=== PATIENT | male | born 1950 | race Caucasian/White ===

== ENCOUNTER → 2016-09-09 | Outpatient (CLI) | payer MEDICARE ==
[2014-11-03 19:00] VITALS: BP 110/69
[~2016-09-09] MED LIST: AMLO5TAB2 PO; ASPI325T8 PO; AZIT250T PO; CITA20TA5 PO; HYDR25TA9 PO; PANT40TA3 PO; PRED-220 PO; PROAIR HFA8.5 GM IH; PROM118S2 PO
--- NOTE | 2016-09-09 11:26 | RAD ---
Indication chronic cough for a year. Axial images through the chest were obtained. No IV contrast was administered. Note is made of a previous examination 06/26/2015. Imaging through the upper abdomen is unremarkable. There is a minute right renal calculus. The thoracic aorta is grossly unremarkable. There is no significant mediastinal or hilar adenopathy. Known coronary artery calcification is reproduced. There are no significant interstitial changes. A subtle opacity in the right upper lobe probably reflecting scar is noted appearing similar to the previous exam. There are no underlying emphysematous changes. An acute finding in the chest or significant change compared to the previous exam is not seen. IMPRESSION: No acute or focal process. No significant change PQRS Compliance Statement: One or more of the following individualized dose reduction techniques were utilized for this examination: 1. Automated exposure control 2. Adjustment of the mA and/or kV according to patient size 3. Use of iterative reconstruction technique
== END | disposition home or self-care (01) ==
LOC: CT 15:37
PROVIDERS: ATTEND Internal Medicine Pulmonary Disease
DX: R05 Cough (principal)
CPT/HCPCS: 71250

== ENCOUNTER 2017-01-24 20:10 | Emergency (ER) | payer MEDICARE ==
[~2017-01-24] VITALS: Ht 177.8 cm; Wt 91.6 kg
[2017-01-24 20:20] VITALS: BP 156/97
[2017-01-24] MEDS ORDERED: ACET-704 PO (21:27)
[2017-01-24] MEDS ORDERED: AMOX500C PO (21:27)
--- NOTE | 2017-01-24 21:27 | PHYS DOC ---
Past Medical History Past Medical History: GERD, Hypertension Past Surgical History: Other Additional Past Surgical Histo: c-spine, left shoulder, Alcohol Use: None Drug Use: None Adult General Chief Complaint Chief Complaint: DENTAL PROBLEM HPI HPI Patient is a 66 year old male presents to the emergency department stating that he's been having dental pain for the last 2 days. He states his been taking ibuprofen 3 tablets more frequently than he probably should. Patient states that he is completely out of ibuprofen at this time. Patient denies having a dentist in which he can follow-up with. He states that he has pain along the bottom and upper teeth. He also states he has pain into his right ear. Denies any fever but does state he has had chills. Review of Systems Review of Systems Constitutional: Denies fever or chills [] Eyes: Denies change in visual acuity, redness, or eye pain [] HENT: Denies nasal congestion or sore throat. dental pain, right ear pain Respiratory: Denies cough or shortness of breath [] Cardiovascular: No additional information not addressed in HPI [] GI: Denies abdominal pain, nausea, vomiting, bloody stools or diarrhea [] : Denies dysuria or hematuria [] Musculoskeletal: Denies back pain or joint pain [] Integument: Denies rash or skin lesions [] Neurologic: Denies headache, focal weakness or sensory changes [] Endocrine: Denies polyuria or polydipsia [] All other systems were reviewed and found to be within normal limits, except as documented in this note. Allergies Allergies Allergies Coded Allergies Type Severity Reaction Last Updated Verified No Known Drug Allergies 04/18/13 No Physical Exam Physical Exam Constitutional: Well developed, well nourished, no acute distress, non-toxic appearance. [] HENT: Normocephalic, atraumatic, bilateral external ears normal, oropharynx moist, no oral exudates, nose normal. Right tympanic membrane appears to be red left amending membrane appears to be normal. Patient's teeth appears to be decayed and mainly gone. Patient does have tenderness noted along the frontal part of the gumline. Patient does have inflammation. No discharge noted. Eyes: PERRLA, EOMI, conjunctiva normal, no discharge. [] Neck: Normal range of motion, no tenderness, supple, no stridor. [] Cardiovascular:Heart rate regular rhythm, no murmur [] Lungs & Thorax: Bilateral breath sounds clear to auscultation [] Skin: Warm, dry, no erythema, no rash. [] Extremities: No tenderness, no cyanosis, no clubbing, ROM intact, no edema. [] Neurologic: Alert and oriented X 3, normal motor function, normal sensory function, no focal deficits noted. [] Psychologic: Affect normal, judgement normal, mood normal. [] Current Patient Data Vital Signs Vital Signs Date Time Temp Pulse Resp B/P (MAP) Pulse Ox O2 Delivery O2 Flow Rate FiO2 01/24/17 20:20 97.9 95 22 98 Room Air 97.9 EKG EKG [] Radiology/Procedures Radiology/Procedures [] Course & Med Decision Making Course & Med Decision Making Pertinent Labs and Imaging studies reviewed. (See chart for details) Patient will be provided with Tylenol 3 when she was instructed will cause drowsiness and may cause constipation. Patient also be placed on amoxicillin 500 mg 4 times a day for the next 10 days. He'll be provided with a dentist list with recommendations to follow up with a dentist within the week. Patient was provided with signs and symptoms return back to the emergency department. All questions and concerns of been answered at the patients bedside. [I've spoken with the patient and/or caregivers. I've explained the patient's condition, diagnosis and treatment plan based on information available to me at this time. I've answered the patient's and/or caregivers questions and addressed any concerns. The patient and/or caregivers have a good understanding the patient's diagnosis, condition and treatment plan as can be expected at this point. Vital signs have been stabilized. The patient's condition is stable for discharge from the emergency department. The patient will pursue further outpatient evaluation with her primary care provider or other designated consulting physician as outlined in the discharge instructions. Patient and/or caregivers are agreeable to this plan of care and follow-up instructions have been explained in detail. The patient and/or caregivers have received these instructions in written format and expressed understanding of these discharge instructions. The patient and her caregivers are aware that if any significant change in condition or worsening of symptoms should prompt him to immediately return to this of the closest emergency department. If an emergent department is not readily available I would encourage him to call 911.] Sadeon Disclaimer Dragon Disclaimer This electronic medical record was generated, in whole or in part, using a voice recognition dictation system. Departure Departure Impression: Primary Impression: Pain, dental Additional Impression: Right otitis media Disposition: 01 HOME, SELF-CARE Condition: STABLE Referrals: NOHELIA JONES MD (PCP) Patient Instructions: Dental Pain, [id number], Otitis Media, Adult, Easy-to- Read Additional Instructions: Activity as tolerated. Medications as prescribed. Tylenol No. 3 may cause drowsiness do not take any be alert and oriented. Tylenol No. 3 may also cause constipation and she drink plenty of fluids and high-fiber diet. Antibiotics as prescribed. Warm salt water mouth rinses 4 times a day. Continue to bras and a prescription teeth. Follow-up with a dentist within the week. Return back to the emergency department as needed for signs and symptoms that become worse. Scripts Amoxicillin (AMOXICILLIN) 500 Mg Capsule 1 CAP PO QID, #40 CAP Prov: JOYCE ADKINS APRN 01/24/17 Acetaminophen With Codeine (TYLENOL WITH CODEINE #3 TABLET) 1 Each Tablet 1 TAB PO PRN Q6HRS Y for PAIN, #15 TAB Prov: JOYCE ADKINS APRN 01/24/17 Problem Qualifiers Additional Impression: Right otitis media Otitis media type: unspecified Qualified Codes: H66.91 - Otitis media, unspecified, right ear JOYCE ADKINS SMELTER LINER Jan 24, 2017 21:27
[2017-01-24] MEDS ORDERED: ACETAMINOPHEN/CODEINE 300/30MG TABLET. PO ONE (21:30)
== END 2017-01-24 21:36 | disposition home or self-care (01) ==
LOC: ER 20:10
DX: K08.89 Other specified disorders of teeth and supporting structures (principal); H66.91 Otitis media, unspecified, right ear; K21.9 Gastro-esophageal reflux disease without esophagitis; I10 Essential (primary) hypertension
CPT/HCPCS: 99283

== ENCOUNTER → 2017-11-15 | Outpatient (CLI) | payer MEDICARE ==
[2017-07-02 11:00] VITALS: BP 129/77
[~2017-11-15] MED LIST changes: +ACET-704 PO; -AMLO5TAB2 PO; +AMLO5TAB7 PO; +AMOX500C PO; -CITA20TA5 PO; +CITA20TA6 PO; +CYCL10TA2 PO; +HYDR-971 PO; -PROM118S2 PO; +PROM118S5 PO
--- NOTE | 2017-11-15 10:55 | RAD ---
CT of the chest without contrast, 11/15/2017: HISTORY: Chronic cough Noncontrast scans were obtained as requested and compared to a study from 09/09/2016. The thoracic aorta is of normal caliber. Moderate scattered coronary artery calcifications are present. The heart is not enlarged. No mediastinal adenopathy is seen. The right hemidiaphragm is mildly elevated. There are minimal linear parenchymal scars in the lungs. There is mild thickening of the minor fissure on the right. There is a calcified granuloma medially in the right lung base. No pulmonary mass or significant consolidation is seen. There is no evidence of pleural fluid. There are couple of tiny bilateral intrarenal calcifications compatible with nonobstructing calculi. Moderate multilevel hypertrophic degenerative change is present in the spine. IMPRESSION: 1. Moderate coronary artery calcifications. 2. No acute chest abnormality is detected. 3. Tiny nonobstructing intrarenal calculi. PQRS Compliance Statement: One or more of the following individualized dose reduction techniques were utilized for this examination: 1. Automated exposure control 2. Adjustment of the mA and/or kV according to patient size 3. Use of iterative reconstruction technique Electronically signed by: Rony Flores MD (11/15/2017 10:52 AM) [facility]
== END | disposition home or self-care (01) ==
LOC: CT 10:49
PROVIDERS: ATTEND Internal Medicine Pulmonary Disease
DX: I25.10 Atherosclerotic heart disease of native coronary artery without angina pectoris (principal); N20.0 Calculus of kidney; I25.2 Old myocardial infarction; I10 Essential (primary) hypertension; E78.5 Hyperlipidemia, unspecified; E78.00 Pure hypercholesterolemia, unspecified; K21.9 Gastro-esophageal reflux disease without esophagitis; Z82.49 Family history of ischemic heart disease and other diseases of the circulatory system
CPT/HCPCS: 71250

== ENCOUNTER → 2018-01-01 | Outpatient (CLI) | payer MEDICARE ==
[2017-07-02 11:00] VITALS: BP 129/77
[~2018-01-01] MED LIST changes: +DOCU-109 PO; +HYDR-2758 PO; +HYDR12.53 PO; +METH750T2 PO
[2018-01-01 13:26] LABS: BASO % 1 % (0-3); EOS % 1 % (0-3); HEMATOCRIT 34.4 % (39.0-53.0); HEMOGLOBIN 12.2 g/dL (13.0-17.5); LYMPH # 0.8 x10^3/uL (1.0-4.8); LYMPH % 14 % (24-48); MEAN CORPUSCULAR HEMOGLOBIN 34 pg (25-35); MEAN CORPUSCULAR HGB CONC 35 g/dL (31-37); MEAN CORPUSCULAR VOLUME 95 fL (79-100); MONO # 0.5 x10^3/uL (0.0-1.1); MONO % 9 % (0-9); NEUT # 4.4 x10^3uL (1.8-7.7); NEUT % 77 % (31-73); PLATELET COUNT 120 x10^3/uL (140-400); RED BLOOD COUNT 3.64 x10^6/uL (4.30-5.70); RED CELL DISTRIBUTION WIDTH 15.2 % (11.5-14.5); WHITE BLOOD COUNT 5.7 x10^3/uL (4.0-11.0)
[2018-01-01 13:40] LABS: ALBUMIN 3.4 g/dL (3.4-5.0); ALBUMIN/GLOBULIN RATIO 0.8 (1.0-1.7); CALCIUM 8.8 mg/dL (8.5-10.1); CREATININE 1.2 mg/dL (0.7-1.3); GFR 60.6; POTASSIUM 3.3 mmol/L (3.5-5.1); TOTAL BILIRUBIN 1.1 mg/dL (0.2-1.0); TOTAL PROTEIN 7.7 g/dL (6.4-8.2)
== END | disposition home or self-care (01) ==
LOC: SURGPAT 12:23
PROVIDERS: ATTEND Neurological Surgery
DX: Z01.818 Encounter for other preprocedural examination (principal); M48.02 Spinal stenosis, cervical region; M54.12 Radiculopathy, cervical region
CPT/HCPCS: 36415; 80053; 85025; 87641

== ENCOUNTER → 2018-01-01 | Outpatient (CLI) | payer MEDICARE ==
[2017-07-02 11:00] VITALS: BP 129/77
[2018-01-01 17:01] LABS: CHOLESTEROL/HDL RATIO 2.8
== END | disposition home or self-care (01) ==
LOC: LAB 12:33
PROVIDERS: ATTEND Specialist
DX: I25.10 Atherosclerotic heart disease of native coronary artery without angina pectoris (principal)
CPT/HCPCS: 36415; 80061; 84443

== ENCOUNTER 2018-07-23 01:55 | Inpatient (IN) | payer MEDICARE ==
[~2018-07-23] VITALS: Ht 177.8 cm; Wt 86.6 kg
[~2018-07-23 01:55] MED LIST changes: +ALBU2.5V8 IH; +AMLO5TAB10 PO; -AMLO5TAB7 PO; +HYDR-2145 PO; -HYDR-2758 PO; +HYDR-2761 PO; +HYDR-3164 PO; -HYDR-971 PO; -HYDR12.53 PO; +HYDR12.575 PO; -HYDR25TA9 PO; -PROAIR HFA8.5 GM IH
[2018-07-23 02:35] LABS: BASO % 1 % (0-3); EOS # 0.1 x10^3/uL (0.0-0.7); EOS % 1 % (0-3); HEMATOCRIT 25.3 % (39.0-53.0); HEMOGLOBIN 8.6 g/dL (13.0-17.5); LYMPH # 0.8 x10^3/uL (1.0-4.8); LYMPH % 20 % (24-48); MEAN CORPUSCULAR HEMOGLOBIN 33 pg (25-35); MEAN CORPUSCULAR HGB CONC 34 g/dL (31-37); MEAN CORPUSCULAR VOLUME 97 fL (79-100); MONO # 0.2 x10^3/uL (0.0-1.1); MONO % 7 % (0-9); NEUT # 2.7 x10^3uL (1.8-7.7); NEUT % 71 % (31-73); PLATELET COUNT 90 x10^3/uL (140-400); RED CELL DISTRIBUTION WIDTH 16.8 % (11.5-14.5); WHITE BLOOD COUNT 3.7 x10^3/uL (4.0-11.0)
[2018-07-23 02:44] LABS: PROTHROMBIN TIME PATIENT 13.9 SEC (11.7-14.0)
[2018-07-23] MEDS ORDERED: KETOROLAC 15 MG/ML VIAL. IV ONE (02:45)
[2018-07-23] MEDS ORDERED: CYCLOBENZAPRINE 10 MG TABLET. PO ONE (02:45)
[2018-07-23] MEDS ORDERED: IV NORMAL SALINE 1000ML BAG 1,000 ML IV ONE (02:45)
[2018-07-23] MEDS ORDERED: ASPIRIN 325 MG TABLET PO ONE (02:45)
[2018-07-23] MEDS ORDERED: DEXAMETHASONE SOD PHOS 20 MG/5 ML VIAL. IV ONE (02:45)
[2018-07-23 03:02] LABS: ALBUMIN 3.4 g/dL (3.4-5.0); ALBUMIN/GLOBULIN RATIO 0.9 (1.0-1.7); CREATININE 1.3 mg/dL (0.7-1.3); GFR 55.1; MAGNESIUM 1.8 mg/dL (1.8-2.4); POTASSIUM 2.9 mmol/L (3.5-5.1); TOTAL BILIRUBIN 1.5 mg/dL (0.2-1.0); TOTAL PROTEIN 7.2 g/dL (6.4-8.2)
[2018-07-23] MEDS ORDERED: POTASSIUM CHLORIDE 20 MEQ TABLET.ER. PO ONE ×2 (03:15→08:30)
--- NOTE | 2018-07-23 03:29 | PHYS DOC ---
Past Medical History Past Medical History: CAD, GERD, Hypertension Past Surgical History: Angioplasty, Other Additional Past Surgical Histo: c-spine X2,left shoulder,ROTATOR CUFF,CARDIAC STENTS Smoking: Quit Greater Than 1 Year Alcohol Use: None Drug Use: Marijuana Adult General Chief Complaint Chief Complaint: BACK PAIN - NO INJURY HPI HPI Patient is a 68 year old [f__sex] who presents with [] Review of Systems Review of Systems Constitutional: Denies fever or chills [] Eyes: Denies change in visual acuity, redness, or eye pain [] HENT: Denies nasal congestion or sore throat [] Respiratory: Denies cough or shortness of breath [] Cardiovascular: No additional information not addressed in HPI [] GI: Denies abdominal pain, nausea, vomiting, bloody stools or diarrhea [] : Denies dysuria or hematuria [] Musculoskeletal: Denies back pain or joint pain [] Integument: Denies rash or skin lesions [] Neurologic: Denies headache, focal weakness or sensory changes [] Endocrine: Denies polyuria or polydipsia [] All other systems were reviewed and found to be within normal limits, except as documented in this note. Current Medications Current Medications Current Medications Medications (Trade) Dose Ordered Sig/Josephine Start Time Stop Time Status Last Admin Dose Admin Aspirin (Christine Aspirin) 325 mg 1X ONCE 07/23/18 02:45 07/23/18 02:46 DC 07/23/18 02:48 325 MG Cyclobenzaprine HCl (Flexeril) 10 mg 1X ONCE 07/23/18 02:45 07/23/18 02:46 DC 07/23/18 02:48 10 MG Dexamethasone Sodium Phosphate (Decadron) 10 mg 1X ONCE 07/23/18 02:45 07/23/18 02:46 DC 07/23/18 02:48 10 MG Ketorolac Tromethamine (Toradol 15mg Vial) 15 mg 1X ONCE 07/23/18 02:45 07/23/18 02:46 DC 07/23/18 02:48 15 MG Potassium Chloride (Klor-Con) 40 meq 1X ONCE 07/23/18 03:15 07/23/18 03:16 DC 07/23/18 03:41 40 MEQ Sodium Chloride 1,000 ml @ 1,000 mls/hr 1X ONCE 07/23/18 02:45 07/23/18 03:44 DC 07/23/18 02:48 1,000 MLS/HR Allergies Allergies Allergies Coded Allergies Type Severity Reaction Last Updated Verified No Known Drug Allergies 01/08/18 No Physical Exam Physical Exam Constitutional: Well developed, well nourished, no acute distress, non-toxic appearance. [] HENT: Normocephalic, atraumatic, bilateral external ears normal, oropharynx moist, no oral exudates, nose normal. [] Eyes: PERRLA, EOMI, conjunctiva normal, no discharge. [] Neck: Normal range of motion, no tenderness, supple, no stridor. [] Cardiovascular:Heart rate regular rhythm, no murmur [] Lungs & Thorax: Bilateral breath sounds clear to auscultation [] Abdomen: Bowel sounds normal, soft, no tenderness, no masses, no pulsatile masses. [] Skin: Warm, dry, no erythema, no rash. [] Back: No tenderness, no CVA tenderness. [] Extremities: No tenderness, no cyanosis, no clubbing, ROM intact, no edema. [] Neurologic: Alert and oriented X 3, normal motor function, normal sensory function, no focal deficits noted. [] Psychologic: Affect normal, judgement normal, mood normal. [] Current Patient Data Vital Signs Vital Signs Date Time Temp Pulse Resp B/P (MAP) Pulse Ox O2 Delivery O2 Flow Rate FiO2 07/23/18 02:05 98.0 105 20 146/82 (103) 100 Room Air 98.0 Lab Values Laboratory Tests Test 07/23/18 02:25 07/23/18 02:38 White Blood Count 3.7 x10^3/uL (4.0-11.0) L Red Blood Count 2.60 x10^6/uL (4.30-5.70) L Hemoglobin 8.6 g/dL (13.0-17.5) L Hematocrit 25.3 % (39.0-53.0) L Mean Corpuscular Volume 97 fL (79-100) Mean Corpuscular Hemoglobin 33 pg (25-35) Mean Corpuscular Hemoglobin Concent 34 g/dL (31-37) Red Cell Distribution Width 16.8 % (11.5-14.5) H Platelet Count 90 x10^3/uL (140-400) L Neutrophils (%) (Auto) 71 % (31-73) Lymphocytes (%) (Auto) 20 % (24-48) L Monocytes (%) (Auto) 7 % (0-9) Eosinophils (%) (Auto) 1 % (0-3) Basophils (%) (Auto) 1 % (0-3) Neutrophils # (Auto) 2.7 x10^3uL (1.8-7.7) Lymphocytes # (Auto) 0.8 x10^3/uL (1.0-4.8) L Monocytes # (Auto) 0.2 x10^3/uL (0.0-1.1) Eosinophils # (Auto) 0.1 x10^3/uL (0.0-0.7) Basophils # (Auto) 0.0 x10^3/uL (0.0-0.2) Prothrombin Time 13.9 SEC (11.7-14.0) Prothrombin Time INR 1.1 (0.8-1.1) PTT 38 SEC (24-38) Sodium Level 139 mmol/L (136-145) Potassium Level 2.9 mmol/L (3.5-5.1) *L Chloride Level 102 mmol/L (98-107) Carbon Dioxide Level 25 mmol/L (21-32) Anion Gap 12 (6-14) Blood Urea Nitrogen 22 mg/dL (8-26) Creatinine 1.3 mg/dL (0.7-1.3) Estimated GFR (Cockcroft-Gault) 55.1 BUN/Creatinine Ratio 17 (6-20) Glucose Level 123 mg/dL (70-99) H Calcium Level 9.0 mg/dL (8.5-10.1) Magnesium Level 1.8 mg/dL (1.8-2.4) Total Bilirubin 1.5 mg/dL (0.2-1.0) H Aspartate Amino Transferase (AST) 23 U/L (15-37) Alanine Aminotransferase (ALT) 19 U/L (16-63) Alkaline Phosphatase 82 U/L (46-116) Creatine Kinase 242 U/L (39-308) Creatine Kinase MB (Mass) 3.4 ng/mL (0.0-3.6) Creatine Kinase MB Relative Index 1.4 % (0-4) Troponin I Quantitative < 0.017 ng/mL (0.000-0.055) DS-Dob-L-Type Natriuretic Peptide 340 pg/mL (0-124) H Total Protein 7.2 g/dL (6.4-8.2) Albumin 3.4 g/dL (3.4-5.0) Albumin/Globulin Ratio 0.9 (1.0-1.7) L Lipase 114 U/L (73-393) Lactic Acid Level 1.7 mmol/L (0.4-2.0) Laboratory Tests 07/23/18 02:25 Laboratory Tests 07/23/18 02:25 EKG EKG @0215 Sinus tachycardia at 103bpm, NO ST elevation, Radiology/Procedures Radiology/Procedures CXR 2 view (Preliminary interpretation by ED physician): No Acute process Course & Med Decision Making Course & Med Decision Making Pertinent Labs and Imaging studies reviewed. (See chart for details) [] Dragon Disclaimer Dragon Disclaimer This electronic medical record was generated, in whole or in part, using a voice recognition dictation system. Departure Departure Impression: Primary Impression: Pancytopenia Additional Impressions: Acute neuritis Hypokalemia Disposition: ADMITTED INPATIENT Admitting Physician: Other (Riffel) Condition: STABLE Referrals: NOHELIA JONES MD (PCP) The HEART Score for CP Pts HEART Score for Chest Pain: HEART Score for Chest Pain Response (Comments) Value History Slighlty/Non-Suspicious 0 ECG Normal 0 Age > 65 2 Risk Factors >3 Risk Factors or Hx CAD 2 Troponin < Normal Limit 0 Total 4 Risk Factors: Risk Factors: DM, Current or recent (<one month) smoker, HTN, HLP, family history of CAD, obesity. Risk Scores: Score 0 - 3: 2.5% MACE over next 6 weeks - Discharge Home Score 4 - 6: 20.3% MACE over next 6 weeks - Admit for Clinical Observation Score 7 - 10: 72.7% MACE over next 6 weeks - Early Invasive Strategies Problem Qualifiers CELSO PALMER DO July 23, 2018 03:29
[2018-07-23] MEDS ORDERED: fentaNYL PF VIAL 100 MCG/2 ML VIAL IV PRN ×2 (03:45→04:00)
[2018-07-23] MEDS ORDERED: ACETAMINOPHEN 325 MG TABLET. PO PRN (03:45)
[2018-07-23] MEDS ORDERED: ONDANSETRON PF 4 MG/2 ML VIAL. IV PRN ×2 (03:45→08:30)
[2018-07-23] MEDS ORDERED: valACYclovir 500 MG TABLET. PO ONE (04:00)
--- NOTE | 2018-07-23 04:30 | NUR ---
The patient, JOCELYN DOMINGUEZ, 68 y/o, M admitted by GORGE DOWLING MD, was given written information regarding hospital policies, unit procedures and contact persons. Valuables were checked and remain in room with patient. Pt. currently denies any needs. Will continue to monitor.
[2018-07-23] MEDS ORDERED: HYDR25TA10 PO (04:39)
[2018-07-23] MEDS ORDERED: IBUP-1060 PO (04:39)
[2018-07-23] MEDS ORDERED: VENTOLIN HFA18 GM INH (04:39)
[2018-07-23 04:44] VITALS: BP 137/74
--- NOTE | 2018-07-23 05:17 | RAD ---
PA and lateral chest. HISTORY: Chest pain PA and lateral views were taken of the chest. There is mild elevation of right diaphragm unchanged from old studies. There are no confluent infiltrates. Heart is normal in size. IMPRESSION: 1. No acute infiltrates. Electronically signed by: Darnell Red MD (07/23/2018 5:14 AM) [id number]
[2018-07-23 07:00] VITALS: BP 112/65
--- NOTE | 2018-07-23 07:19 | EKG ---
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
[2018-07-23] MEDS: IPRATRPIUM/ALBUTEROL 0.5/2.5MG 3 ML NEBU. NEB SCH ×2 (08:01→11:52)
[2018-07-23] MEDS ORDERED: HYDROcodone/APAP 5/325MG 1 TAB TABLET PO PRN (08:30)
[2018-07-23] MEDS ORDERED: IBUPROFEN 400 MG TABLET. PO PRN (08:30)
[2018-07-23] MEDS ORDERED: CYCLOBENZAPRINE 10 MG TABLET. PO PRN (08:30)
[2018-07-23] MEDS ORDERED: ALBUTEROL SULFATE 2.5 MG/3 ML NEBU. NEB PRN (08:30)
--- NOTE | 2018-07-23 08:47 | EKG ---
[facility] [address] [place] [address] Test Date: 2018-07-23 Test Time: 02:15:27 Pat Name: JOCELYN DOMINGUEZ Department: Room: 2 Gender: M Radio Despatcher: : 1950 Requested By: GORGE DOWLING Order Number: [id number] Reading MD: Lane Faria Measurements Intervals [place] Rate: 103 P: 49 [place]: 176 QRS: 16 QRSD: 86 T: 39 QT: 344 QTc: 453 Interpretive Statements SINUS TACHYCARDIA Electronically Signed On 08-10-2018 12:51:[address] Faria
[2018-07-23] MEDS ORDERED: PANTOPRAZOLE 40 MG TABLET.DR. PO SCH (09:00)
[2018-07-23] MEDS ORDERED: VALA1000 PO (10:36)
--- NOTE | 2018-07-23 10:42 | PDOC1 ---
History and Physical Date of Admission Date of Admission DATE: 07/23/18 TIME: 10:36 Identification/Chief Complaint Chief Complaint Back pain, no injury Source Source: Caregiver, Chart review, Patient History of Present Illness History of Present Illness 68 year old male came into the emergency room last night because of back pain but no injury. Only to discover that he has shingles. ER gave a dose of valacyclovir and the lesions are almost gone and back pain almost gone. He does have history of recent C3-C4 surgery by Dr. Valdovinos 01/2018, 3 times sx and that is not an issue now. Some hypokalemia 2.9. Got 40 at the ER, I am giving 20 meqs now too Total bili 1.5 BNP 340, pancytopenia - news to him. HE has no lethargy or bleeding. WBC 3, platelets 90, hemoglobin low. Nonalcoholic, no hepatitis, no cancer. Did insurance counselor about following up with PCP and repeat checks again in 2-4 weeks time. We are repeating potassium. If that is better, okay for home today with valacyclovir 1 g twice a day for 7-10 days Patient seen and examined consults none Procedures none Past Medical History Cardiovascular: No pertinent hx Pulmonary: No pertinent hx GI: No pertinent hx Heme/Onc: No pertinent hx Hepatobiliary: No pertinent hx Psych: No pertinent hx Musculoskeletal: low back pain Rheumatologic: No pertinent hx Infectious disease: No pertinent hx ENT: No pertinent hx Renal/: No pertinent hx Endocrine: No pertinent hx Dermatology: No pertinent hx Past Surgical History Past Surgical History: Other (C3-C4 surgery neurosurgery, 01/2018) Family History Family History: Hypertension Social History Smoke: No ALCOHOL: occassional Drugs: Marijuana Current Problem List Problem List Problems Medical Problems: (1) Acute neuritis Status: Acute (2) Hypokalemia Status: Acute (3) Pancytopenia Status: Acute Current Medications Current Medications Current Medications Aspirin (Christine Aspirin) 325 mg 1X ONCE PO Last administered on 07/23/18at 02:48; Start 07/23/18 at 02:45; Stop 07/23/18 at 02:46; Status DC Sodium Chloride 1,000 ml @ 1,000 mls/hr 1X ONCE IV Last administered on 07/23/18at 02:48; Start 07/23/18 at 02:45; Stop 07/23/18 at 03:44; Status DC Dexamethasone Sodium Phosphate (Decadron) 10 mg 1X ONCE IV Last administered on 07/23/18at 02:48; Start 07/23/18 at 02:45; Stop 07/23/18 at 02:46; Status DC Cyclobenzaprine HCl (Flexeril) 10 mg 1X ONCE PO Last administered on 07/23/18at 02:48; Start 07/23/18 at 02:45; Stop 07/23/18 at 02:46; Status DC Ketorolac Tromethamine (Toradol 15mg Vial) 15 mg 1X ONCE IV Last administered on 07/23/18at 02:48; Start 07/23/18 at 02:45; Stop 07/23/18 at 02:46; Status DC Potassium Chloride (Klor-Con) 40 meq 1X ONCE PO Last administered on 07/23/18at 03:41; Start 07/23/18 at 03:15; Stop 07/23/18 at 03:16; Status DC Valacyclovir HCl (Valtrex) 1,000 mg 1X ONCE PO Last administered on 07/23/18at 04:12; Start 07/23/18 at 04:00; Stop 07/23/18 at 04:01; Status DC Ondansetron HCl (Zofran) 4 mg PRN Q8HRS PRN IV NAUSEA/VOMITING; Start 07/23/18 at 03:45; Stop 07/23/18 at 08:19; Status DC Fentanyl Citrate (Fentanyl 2ml Vial) 50 mcg Q2HR PRN IV PAIN Last administered on 07/23/18at 03:41; Start 07/23/18 at 03:45; Stop 07/23/18 at 03:50; Status DC Acetaminophen (Tylenol) 650 mg PRN Q4HRS PRN PO FEVER; Start 07/23/18 at 03:45; Stop 07/24/18 at 03:44 Albuterol/ Ipratropium (Duoneb) 3 ml RTQID NEB Last administered on 07/23/18at 08:01; Start 07/23/18 at 08:00; Stop 07/24/18 at 07:59 Fentanyl Citrate (Fentanyl 2ml Vial) 50 mcg PRN Q2HR PRN IV PAIN; Start 07/23/18 at 04:00 Ondansetron HCl (Zofran) 4 mg PRN Q6HRS PRN IV NAUSEA/VOMITING; Start 07/23/18 at 08:30 Potassium Chloride (Klor-Con) 20 meq 1X ONCE PO Last administered on 07/23/18at 09:41; Start 07/23/18 at 08:30; Stop 07/23/18 at 08:31; Status DC Cyclobenzaprine HCl (Flexeril) 10 mg PRN Q6HRS PRN PO MUSCLE SPASMS; Start 07/23/18 at 08:30 Amlodipine Besylate (Norvasc) 5 mg HS PO ; Start 07/23/18 at 21:00 Aspirin (Christine Aspirin) 325 mg QHS PO ; Start 07/23/18 at 21:00 Hydrochlorothiazide (Hydrodiuril) 25 mg HS PO ; Start 07/23/18 at 21:00 Acetaminophen/ Hydrocodone Bitart (Lortab 5/325) 1 tab PRN Q4HRS PRN PO MILD PAIN 1-3; Start 07/23/18 at 08:30 Pantoprazole Sodium (Protonix) 40 mg DAILYAC PO ; Start 07/23/18 at 09:00 Albuterol Sulfate (Ventolin Neb Soln) 2.5 mg PRN Q6HRS PRN NEB SHORTNESS OF BREATH; Start 07/23/18 at 08:30 Ibuprofen (Motrin) 800 mg PRN Q6HRS PRN PO INFLAMMATION; Start 07/23/18 at 08:30 Active Scripts Active Hydrocodone-Apap 5-325 (Hydrocodone Bit/Acetaminophen) 1 Each Tablet 1 Tab PO PRN Q4HRS PRN Reported Ibuprofen 800 Mg Tablet 800 Mg PO PRN Q6HRS PRN Ventolin Hfa Inhaler (Albuterol Sulfate) 18 Gm Hfa.aer.ad 1 Inh INH PRN PRN Hydrochlorothiazide 25 Mg Tablet 25 Mg PO HS Amlodipine Besylate 5 Mg Tablet 5 Mg PO HS Protonix (Pantoprazole Sodium) 40 Mg Tablet.dr 1 Tab PO DAILY Aspirin 325 Mg Tablet 1 Tab PO QHS Allergies Allergies: Coded Allergies: No Known Drug Allergies (Unverified , 01/08/18) ROS Review of System A 14 point ROS was completed with the following noted as positive: Other systems reviewed and negative. \CONSTITUTIONAL: No fever or chills EYES: No recent changes SKIN: No rash or itching CARDIOVASCULAR: No chest pain, syncope, palpitations, or edema RESPIRATORY: No SOB or cough GASTROINTESTINAL: No nausea, vomiting or abdominal pain NEUROLOGICAL: No headaches or weakness ENDOCRINE: No cold or heat intolerance GENITOURINARY: No urgency or frequency of urination MUSCULOSKELETAL: No back pain or joint pain LYMPHATICS: No enlarged lymph nodes PSYCHIATRIC: No anxiety or depression Physical Exam General: Alert, Oriented X3, Cooperative, No acute distress HEENT: Atraumatic, PERRLA, EOMI Lungs: Clear to auscultation, Normal air movement Heart: S1S2, RRR, no thrills, no rubs, no gallops, no murmurs Cardiovascular: S1, S2 Abdomen: Normal bowel sounds, Soft, No tenderness, No hepatosplenomegaly, No masses Male Genitals Exam: normal genitalia, normal prostate Rectal Exam: not examined PELVIC: Nml ext genitalia Extremities: No clubbing, No cyanosis, No edema, Normal pulses, No tenderness/swelling Skin: No rashes, No breakdown, No significant lesion Neuro: Normal gait, Normal speech, Strength at 5/5 X4 ext, Normal tone, Sensation intact, Cranial nerves 3-12 NL, Reflexes 2+ Psych/Mental Status: Mental status NL, Mood NL Vitals Vitals Vital Signs Date Time Temp Pulse Resp B/P (MAP) Pulse Ox O2 Delivery O2 Flow Rate FiO2 07/23/18 08:01 97 Room Air 07/23/18 07:00 97.8 97 24 112/65 (81) 97.8 Labs Labs Laboratory Tests Test 07/23/18 02:25 07/23/18 02:38 07/23/18 06:15 White Blood Count 3.7 x10^3/uL (4.0-11.0) Red Blood Count 2.60 x10^6/uL (4.30-5.70) Hemoglobin 8.6 g/dL (13.0-17.5) Hematocrit 25.3 % (39.0-53.0) Mean Corpuscular Volume 97 fL (79-100) Mean Corpuscular Hemoglobin 33 pg (25-35) Mean Corpuscular Hemoglobin Concent 34 g/dL (31-37) Red Cell Distribution Width 16.8 % (11.5-14.5) Platelet Count 90 x10^3/uL (140-400) Neutrophils (%) (Auto) 71 % (31-73) Lymphocytes (%) (Auto) 20 % (24-48) Monocytes (%) (Auto) 7 % (0-9) Eosinophils (%) (Auto) 1 % (0-3) Basophils (%) (Auto) 1 % (0-3) Neutrophils # (Auto) 2.7 x10^3uL (1.8-7.7) Lymphocytes # (Auto) 0.8 x10^3/uL (1.0-4.8) Monocytes # (Auto) 0.2 x10^3/uL (0.0-1.1) Eosinophils # (Auto) 0.1 x10^3/uL (0.0-0.7) Basophils # (Auto) 0.0 x10^3/uL (0.0-0.2) Prothrombin Time 13.9 SEC (11.7-14.0) Prothromb Time International Ratio 1.1 (0.8-1.1) Activated Partial Thromboplast Time 38 SEC (24-38) Sodium Level 139 mmol/L (136-145) Potassium Level 2.9 mmol/L (3.5-5.1) Chloride Level 102 mmol/L (98-107) Carbon Dioxide Level 25 mmol/L (21-32) Anion Gap 12 (6-14) Blood Urea Nitrogen 22 mg/dL (8-26) Creatinine 1.3 mg/dL (0.7-1.3) Estimated GFR (Cockcroft-Gault) 55.1 BUN/Creatinine Ratio 17 (6-20) Glucose Level 123 mg/dL (70-99) Calcium Level 9.0 mg/dL (8.5-10.1) Magnesium Level 1.8 mg/dL (1.8-2.4) Total Bilirubin 1.5 mg/dL (0.2-1.0) Aspartate Amino Transf (AST/SGOT) 23 U/L (15-37) Alanine Aminotransferase (ALT/SGPT) 19 U/L (16-63) Alkaline Phosphatase 82 U/L (46-116) Creatine Kinase 242 U/L (39-308) Creatine Kinase MB (Mass) 3.4 ng/mL (0.0-3.6) Creatine Kinase MB Relative Index 1.4 % (0-4) Troponin I Quantitative < 0.017 ng/mL (0.000-0.055) < 0.017 ng/mL (0.000-0.055) OD-Frx-X-Type Natriuretic Peptide 340 pg/mL (0-124) Total Protein 7.2 g/dL (6.4-8.2) Albumin 3.4 g/dL (3.4-5.0) Albumin/Globulin Ratio 0.9 (1.0-1.7) Lipase 114 U/L (73-393) Lactic Acid Level 1.7 mmol/L (0.4-2.0) Laboratory Tests Test 07/23/18 02:25 07/23/18 02:38 07/23/18 06:15 White Blood Count 3.7 x10^3/uL (4.0-11.0) Red Blood Count 2.60 x10^6/uL (4.30-5.70) Hemoglobin 8.6 g/dL (13.0-17.5) Hematocrit 25.3 % (39.0-53.0) Mean Corpuscular Volume 97 fL (79-100) Mean Corpuscular Hemoglobin 33 pg (25-35) Mean Corpuscular Hemoglobin Concent 34 g/dL (31-37) Red Cell Distribution Width 16.8 % (11.5-14.5) Platelet Count 90 x10^3/uL (140-400) Neutrophils (%) (Auto) 71 % (31-73) Lymphocytes (%) (Auto) 20 % (24-48) Monocytes (%) (Auto) 7 % (0-9) Eosinophils (%) (Auto) 1 % (0-3) Basophils (%) (Auto) 1 % (0-3) Neutrophils # (Auto) 2.7 x10^3uL (1.8-7.7) Lymphocytes # (Auto) 0.8 x10^3/uL (1.0-4.8) Monocytes # (Auto) 0.2 x10^3/uL (0.0-1.1) Eosinophils # (Auto) 0.1 x10^3/uL (0.0-0.7) Basophils # (Auto) 0.0 x10^3/uL (0.0-0.2) Prothrombin Time 13.9 SEC (11.7-14.0) Prothromb Time International Ratio 1.1 (0.8-1.1) Activated Partial Thromboplast Time 38 SEC (24-38) Sodium Level 139 mmol/L (136-145) Potassium Level 2.9 mmol/L (3.5-5.1) Chloride Level 102 mmol/L (98-107) Carbon Dioxide Level 25 mmol/L (21-32) Anion Gap 12 (6-14) Blood Urea Nitrogen 22 mg/dL (8-26) Creatinine 1.3 mg/dL (0.7-1.3) Estimated GFR (Cockcroft-Gault) 55.1 BUN/Creatinine Ratio 17 (6-20) Glucose Level 123 mg/dL (70-99) Calcium Level 9.0 mg/dL (8.5-10.1) Magnesium Level 1.8 mg/dL (1.8-2.4) Total Bilirubin 1.5 mg/dL (0.2-1.0) Aspartate Amino Transf (AST/SGOT) 23 U/L (15-37) Alanine Aminotransferase (ALT/SGPT) 19 U/L (16-63) Alkaline Phosphatase 82 U/L (46-116) Creatine Kinase 242 U/L (39-308) Creatine Kinase MB (Mass) 3.4 ng/mL (0.0-3.6) Creatine Kinase MB Relative Index 1.4 % (0-4) Troponin I Quantitative < 0.017 ng/mL (0.000-0.055) < 0.017 ng/mL (0.000-0.055) DM-Dgr-C-Type Natriuretic Peptide 340 pg/mL (0-124) Total Protein 7.2 g/dL (6.4-8.2) Albumin 3.4 g/dL (3.4-5.0) Albumin/Globulin Ratio 0.9 (1.0-1.7) Lipase 114 U/L (73-393) Lactic Acid Level 1.7 mmol/L (0.4-2.0) VTE Prophylaxis Ordered VTE Prophylaxis Devices: Yes VTE Pharmacological Prophylaxi: Yes Assessment/Plan Assessment/Plan Shingles, left thoracic back Recent C3-C4 surgery - chronic stable Ikxebvhhbsku-eqcq-ofvhol-up outpatient heme onc referral given Critical hypokalemia Elevated total bili with no abdominal pain Plan Valacyclovir 1 g twice a day for 7-10 days Can follow-up heme onc as outpatient if deemed so by PCP Advise repeat CBC in 2-4 weeks time Checking potassium now, if much better than okay for home today CHARIS WORKMAN MD July 23, 2018 10:41
--- NOTE | 2018-07-23 10:43 | PDOC3 ---
Discharge Summary Visit Information Date of Admission: July 22, 2018 Date of Discharge: July 23, 2018 Admitting Diagnosis Comment: Shingles, left thoracic back Recent C3-C4 surgery - chronic stable Dqrdlhadtrmd-iotr-jdjnow-up outpatient heme onc referral given Critical hypokalemia Elevated total bili with no abdominal pain Plan Valacyclovir 1 g twice a day for 7-10 days Can follow-up heme onc as outpatient if deemed so by PCP Advise repeat CBC in 2-4 weeks time Checking potassium now, if much better than okay for home today Final Diagnosis Problems Medical Problems: (1) Acute neuritis Status: Acute (2) Hypokalemia Status: Acute (3) Pancytopenia Status: Acute Brief Hospital Course Allergies Allergies Coded Allergies Type Severity Reaction Last Updated Verified No Known Drug Allergies 01/08/18 No Vital Signs Vital Signs Date Time Temp Pulse Resp B/P (MAP) Pulse Ox O2 Delivery O2 Flow Rate FiO2 07/23/18 08:01 97 Room Air 07/23/18 07:00 97.8 97 24 112/65 (81) 97.8 Lab Results Laboratory Tests Test 07/23/18 02:25 07/23/18 02:38 07/23/18 06:15 White Blood Count 3.7 x10^3/uL (4.0-11.0) Red Blood Count 2.60 x10^6/uL (4.30-5.70) Hemoglobin 8.6 g/dL (13.0-17.5) Hematocrit 25.3 % (39.0-53.0) Mean Corpuscular Volume 97 fL (79-100) Mean Corpuscular Hemoglobin 33 pg (25-35) Mean Corpuscular Hemoglobin Concent 34 g/dL (31-37) Red Cell Distribution Width 16.8 % (11.5-14.5) Platelet Count 90 x10^3/uL (140-400) Neutrophils (%) (Auto) 71 % (31-73) Lymphocytes (%) (Auto) 20 % (24-48) Monocytes (%) (Auto) 7 % (0-9) Eosinophils (%) (Auto) 1 % (0-3) Basophils (%) (Auto) 1 % (0-3) Neutrophils # (Auto) 2.7 x10^3uL (1.8-7.7) Lymphocytes # (Auto) 0.8 x10^3/uL (1.0-4.8) Monocytes # (Auto) 0.2 x10^3/uL (0.0-1.1) Eosinophils # (Auto) 0.1 x10^3/uL (0.0-0.7) Basophils # (Auto) 0.0 x10^3/uL (0.0-0.2) Prothrombin Time 13.9 SEC (11.7-14.0) Prothromb Time International Ratio 1.1 (0.8-1.1) Activated Partial Thromboplast Time 38 SEC (24-38) Sodium Level 139 mmol/L (136-145) Potassium Level 2.9 mmol/L (3.5-5.1) Chloride Level 102 mmol/L (98-107) Carbon Dioxide Level 25 mmol/L (21-32) Anion Gap 12 (6-14) Blood Urea Nitrogen 22 mg/dL (8-26) Creatinine 1.3 mg/dL (0.7-1.3) Estimated GFR (Cockcroft-Gault) 55.1 BUN/Creatinine Ratio 17 (6-20) Glucose Level 123 mg/dL (70-99) Calcium Level 9.0 mg/dL (8.5-10.1) Magnesium Level 1.8 mg/dL (1.8-2.4) Total Bilirubin 1.5 mg/dL (0.2-1.0) Aspartate Amino Transf (AST/SGOT) 23 U/L (15-37) Alanine Aminotransferase (ALT/SGPT) 19 U/L (16-63) Alkaline Phosphatase 82 U/L (46-116) Creatine Kinase 242 U/L (39-308) Creatine Kinase MB (Mass) 3.4 ng/mL (0.0-3.6) Creatine Kinase MB Relative Index 1.4 % (0-4) Troponin I Quantitative < 0.017 ng/mL (0.000-0.055) < 0.017 ng/mL (0.000-0.055) ZH-Wlz-H-Type Natriuretic Peptide 340 pg/mL (0-124) Total Protein 7.2 g/dL (6.4-8.2) Albumin 3.4 g/dL (3.4-5.0) Albumin/Globulin Ratio 0.9 (1.0-1.7) Lipase 114 U/L (73-393) Lactic Acid Level 1.7 mmol/L (0.4-2.0) Laboratory Tests Test 07/23/18 02:25 07/23/18 02:38 07/23/18 06:15 White Blood Count 3.7 x10^3/uL (4.0-11.0) Red Blood Count 2.60 x10^6/uL (4.30-5.70) Hemoglobin 8.6 g/dL (13.0-17.5) Hematocrit 25.3 % (39.0-53.0) Mean Corpuscular Volume 97 fL (79-100) Mean Corpuscular Hemoglobin 33 pg (25-35) Mean Corpuscular Hemoglobin Concent 34 g/dL (31-37) Red Cell Distribution Width 16.8 % (11.5-14.5) Platelet Count 90 x10^3/uL (140-400) Neutrophils (%) (Auto) 71 % (31-73) Lymphocytes (%) (Auto) 20 % (24-48) Monocytes (%) (Auto) 7 % (0-9) Eosinophils (%) (Auto) 1 % (0-3) Basophils (%) (Auto) 1 % (0-3) Neutrophils # (Auto) 2.7 x10^3uL (1.8-7.7) Lymphocytes # (Auto) 0.8 x10^3/uL (1.0-4.8) Monocytes # (Auto) 0.2 x10^3/uL (0.0-1.1) Eosinophils # (Auto) 0.1 x10^3/uL (0.0-0.7) Basophils # (Auto) 0.0 x10^3/uL (0.0-0.2) Prothrombin Time 13.9 SEC (11.7-14.0) Prothromb Time International Ratio 1.1 (0.8-1.1) Activated Partial Thromboplast Time 38 SEC (24-38) Sodium Level 139 mmol/L (136-145) Potassium Level 2.9 mmol/L (3.5-5.1) Chloride Level 102 mmol/L (98-107) Carbon Dioxide Level 25 mmol/L (21-32) Anion Gap 12 (6-14) Blood Urea Nitrogen 22 mg/dL (8-26) Creatinine 1.3 mg/dL (0.7-1.3) Estimated GFR (Cockcroft-Gault) 55.1 BUN/Creatinine Ratio 17 (6-20) Glucose Level 123 mg/dL (70-99) Calcium Level 9.0 mg/dL (8.5-10.1) Magnesium Level 1.8 mg/dL (1.8-2.4) Total Bilirubin 1.5 mg/dL (0.2-1.0) Aspartate Amino Transf (AST/SGOT) 23 U/L (15-37) Alanine Aminotransferase (ALT/SGPT) 19 U/L (16-63) Alkaline Phosphatase 82 U/L (46-116) Creatine Kinase 242 U/L (39-308) Creatine Kinase MB (Mass) 3.4 ng/mL (0.0-3.6) Creatine Kinase MB Relative Index 1.4 % (0-4) Troponin I Quantitative < 0.017 ng/mL (0.000-0.055) < 0.017 ng/mL (0.000-0.055) NN-Lnq-T-Type Natriuretic Peptide 340 pg/mL (0-124) Total Protein 7.2 g/dL (6.4-8.2) Albumin 3.4 g/dL (3.4-5.0) Albumin/Globulin Ratio 0.9 (1.0-1.7) Lipase 114 U/L (73-393) Lactic Acid Level 1.7 mmol/L (0.4-2.0) Brief Hospital Course Mr. Bragg is a 68 old [sex] who presented with [ ] 68 year old male came into the emergency room last night because of back pain but no injury. Only to discover that he has shingles. ER gave a dose of valacyclovir and the lesions are almost gone and back pain almost gone. He does have history of recent C3-C4 surgery by Dr. Haddad 01/2018, 3 times sx and that is not an issue now. Some hypokalemia 2.9. Got 40 at the ER, I am giving 20 meqs now too Total bili 1.5 BNP 340, pancytopenia - news to him. HE has no lethargy or bleeding. WBC 3, platelets 90, hemoglobin low. Nonalcoholic, no hepatitis, no cancer. Did financial aid counselor about following up with PCP and repeat checks again in 2-4 weeks time. We are repeating potassium. If that is better, okay for home today with valacyclovir 1 g twice a day for 7-10 days Patient seen and examined Tonsils none Procedures none Discharge Information Condition at Discharge: Improved, Stable Follow Up: Weeks (2-4 weeks PCP/heme onc) Disposition/Orders: D/C to Home Scheduled Amlodipine Besylate (Amlodipine Besylate) 5 Mg Tablet, 5 MG PO HS, (Reported) Entered as Reported by: VENU CRESPO on 01/01/18 1247 Last Action: Continued on 07/23/18819 by CHARIS WORKMAN Aspirin (Aspirin) 325 Mg Tablet, 1 TAB PO QHS, #30 Ref 5 (Reported) Entered as Reported by: JOSS RODRIGUEZ on 10/31/142024 Last Action: Continued on 07/23/18819 by CHARIS WORKMAN Hydrochlorothiazide (Hydrochlorothiazide) 25 Mg Tablet, 25 MG PO HS for blood pressure, (Reported) Entered as Reported by: DONNY MITCHELL on 07/23/18438 Last Taken: Unknown Dose on 07/22/18 Last Action: Continued on 07/23/18819 by CHARIS WORKMAN Pantoprazole Sodium (Protonix) 40 Mg Tablet.dr, 1 TAB PO DAILY, #30 Ref 5 (Reported) Entered as Reported by: DONNY MITCHELL on 11/03/142046 Last Action: Continued on 07/23/18819 by CHARIS WORKMAN Valacyclovir Hcl (Valacyclovir) 1,000 Mg Tablet, 1 TAB PO BID for 7, #14 Ref 3 Prescribed by: CHARIS WORKMAN on 07/23/18 1036 Scheduled PRN Albuterol Sulfate (Ventolin Hfa Inhaler) 18 Gm Hfa.aer.ad, 1 INH INH PRN PRN for SHORTNESS OF BREATH, (Reported) Entered as Reported by: DONNY MITCHELL on 07/23/18438 Last Action: Converted on 07/23/18819 by CHARIS WORKMAN Hydrocodone Bit/Acetaminophen (Hydrocodone-Apap 5-325 ) 1 Each Tablet, 1 TAB PO PRN Q4HRS PRN for MILD PAIN, #60 Prescribed by: REBECCA HADDAD on 01/09/18 0835 Last Action: Continued on 07/23/18 08 by CHARIS WORKMAN Ibuprofen (Ibuprofen) 800 Mg Tablet, 800 MG PO PRN Q6HRS PRN for INFLAMMATION, (Reported) Entered as Reported by: DONNY MITCHELL on 07/23/18 0439 Last Taken: Unknown Dose on 07/22/18 Last Action: Converted on 07/23/18819 by CHARIS BLOOD MD July 23, 2018 10:43
--- NOTE | 2018-07-23 12:27 | NUR ---
Discharge Note: JOCELYN DOMINGUEZ [address] [place] [address] Discharge instructions and discharge home medications reviewed with Patient and a copy given. All questions have been answered and understanding verbalized. The following instructions and handouts were given: Neuritis, Hypokalemia, follow-up for Dr. Paez, and ej Discontinued lines and drains: 1 x PIV intact. Patient discharged to home with family
[2018-07-23] MEDS ORDERED: hydroCHLOROthiazide 25 MG TABLET PO SCH (21:00)
[2018-07-23] MEDS ORDERED: amLODIPine BESYLATE 5 MG TABLET PO SCH (21:00)
[2018-07-23] MEDS ORDERED: ASPIRIN 325 MG TABLET PO SCH (21:00)
== END 2018-07-23 12:30 | disposition home or self-care (01) | DRG 596 ==
LOC: ER 01:55 → 6 SOUTH 03:30
PROVIDERS: ADMIT Internal Medicine; ATTEND Internal Medicine
DX: B02.9 Zoster without complications (principal); D61.818 Other pancytopenia; M79.2 Neuralgia and neuritis, unspecified; I25.10 Atherosclerotic heart disease of native coronary artery without angina pectoris; K21.9 Gastro-esophageal reflux disease without esophagitis; E87.6 Hypokalemia; I10 Essential (primary) hypertension; Z95.5 Presence of coronary angioplasty implant and graft; Z87.891 Personal history of nicotine dependence; Z82.49 Family history of ischemic heart disease and other diseases of the circulatory system
CPT/HCPCS: 36415; 71046; 80053; 82553; 83605; 83690; 83735; 83880; 84132; 84484; 85025; 85610; 85730; 93005; 96361; 96374; 96375; J1100; J1885; J3010; J7030; J7620; 99285-25